=== PATIENT | female | born 1970 | race American Indian/Alaskan Native ===

== ENCOUNTER 2019-02-11 19:23 | Emergency (ER) | payer OTHER ==
[2019-02-11] MEDS ORDERED: SUBLIMAZE IV ONE (19:56)
[2019-02-11] MEDS ORDERED: ZOFRAN IV ONE (19:56)
[2019-02-11] MEDS ORDERED: TORADOL IV ONE (19:57)
--- NOTE | 2019-02-11 20:05 | Emergency Department Report ---
HPI - General Chief Complaint: Abdominal Pain Time Seen by Provider: 02/11/19 19:48 - HPI HPI: Room 6 The patient is a 48-year-old female presenting with a chief complaint of left flank pain. Patient states her symptoms began today approximately 14:00 with pain in the left flank. Patient states pain radiated around to the left lower quadrant suprapubic region. Patient describes the pain is sharp and cramping in nature. Patient states her pain has been constant. Patient denies dysuria or hematuria but states when she attempted to urinate only small amount came out. Patient and the second episode of nausea vomiting. Patient denies history of fever. Denies previous episodes of the same type of pain. Patient currently gets her pain a score of 5/10 Location: Left flank Duration: Constant since 14:00 Quality: Cramping Severity: 5/10 Modifying factors: [see above] Context: [see above] Mode of transportation: [not driving] ED Past Medical Hx - Past Medical History Additional medical history: Ulcerative colitis - Surgical History Additional Surgical History: Bilateral tubal ligation - Family History Family history: no significant - Social History Smoking Status: Never Smoker Substance Use Type: None (denies illicit drug use) - Medications Home Medications: Home Medications Medication Instructions Recorded Confirmed Last Taken Type HYDROcodone/APAP 5-325 [[place] 1 - 2 each PO Q6HR PRN #14 tablet 02/11/19 Unknown Rx 5/325] levoFLOXacin [Levaquin TAB] 500 mg PO QDAY #7 tablet 02/11/19 Unknown Rx ED Review of Systems ROS: Stated complaint: ABD PAIN Other details as noted in HPI Constitutional: denies: fever Eyes: denies: eye pain ENT: denies: throat pain Respiratory: no symptoms reported Cardiovascular: denies: chest pain Endocrine: no symptoms reported Gastrointestinal: abdominal pain, nausea, vomiting Genitourinary: denies: dysuria, hematuria Musculoskeletal: back pain Neurological: denies: headache Physical Exam - Physical Exam Vital Signs: Vital Signs 02/11/19 19:33 Temperature 98.4 F Pulse Rate 78 Respiratory 19 Rate Blood Pressure 135/86 [Left] O2 Sat by Pulse 99 Oximetry Physical Exam: GENERAL: The patient is well-developed well-nourished female lying on stretcher not to be in acute distress. [] HEENT: Normocephalic. Atraumatic. Extraocular motions are intact. Patient has moist mucous membranes. NECK: Supple. Trachea midline CHEST/LUNGS: Clear to auscultation. There is no respiratory distress noted. HEART/CARDIOVASCULAR: Regular. There is no tachycardia. There is no gallop rub or murmur. ABDOMEN: Abdomen is soft, with mild discomfort to palpation in the suprapubic region. There is no rebound or guarding. Patient has normal bowel sounds. There is no abdominal distention. SKIN: There is no rash. There is no edema. There is no diaphoresis. NEURO: The patient is awake, alert, and oriented. The patient is cooperative. The patient has normal speech MUSCULOSKELETAL: There is no CVA tenderness. There is no evidence of acute injury. ED Course Vital Signs 02/11/19 19:33 Temperature 98.4 F Pulse Rate 78 Respiratory 19 Rate Blood Pressure 135/86 [Left] O2 Sat by Pulse 99 Oximetry ED Medical Decision Making - Lab Data Result diagrams: 02/11/19 20:11 02/11/19 20:11 - Radiology Data Radiology results: report reviewed (CT abdomen and pelvis), image reviewed (CT abdomen and pelvis) [facility] [address] [place] [address] Cat Scan Report Signed Patient: MONY GONZALEZ MR#: [id number] : 1970 Acct:[id number] Age/Sex: 48 / F ADM Date: 02/11/19 Loc: ED Attending Dr: Ordering Physician: TWAN FOLEY MD Date of Service: 02/11/19 Procedure(s): CT abdomen pelvis wo con Accession Number(s): [id number] cc: TWAN FOLEY MD PROCEDURE: CT ABDOMEN PELVIS WO CON TECHNIQUE: Axial helical imaging through the abdomen and pelvis with sagittal and coronal reformatted images obtained. HISTORY: left flank/suprapubic pain, nausea vomiting COMPARISONS: None FINDINGS: The lung bases are without infiltrate, pneumothorax or pleural fluid collect ion. The liver, spleen, pancreas and adrenal glands are unremarkable. There appear to be punctate nonobstructing stones in the right renal pelvis. There is no evidence of hydronephrosis nor hydroureter. The gallbladder is mildly distended and unremarkable. There is moderate distention of the stomach which contains ingested contents. The bowel is otherwise normal caliber. There is a moderate amount of stool in the ascending and transverse colon. The appendix is normal caliber. There is no evidence of pneumoperitoneum or free fluid. The abdominal aorta is normal caliber. There is no evidence of intra-abdominal adenopathy on this study without contrast. The urinary bladder is mildly distended and unremarkable. The uterus and adnexa are unremarkable. The bony structures are notable for dextrocurvature of the lumbar spine. IMPRESSION: 1. No evidence of an acute intra-abdominal process on this study without contrast. 2. Nonobstructing stones right renal pelvis. No evidence of hydronephrosis. 3. Dextrocurvature lumbar spine. This document is electronically signed by Maria Teresa Salazar MD., Feb 11 2019 09:36:04 PM ET Transcribed By: ED Dictated By: MARIA TERESA SALAZAR MD Electronically Authenticated By: MARIA TERESA SALAZAR MD Signed Date/Time: 02/11/192137 DD/ 13 TD/TT: 02/11/192113 - Differential Diagnosis renal colic, UTI, pyelonephritis, Critical care attestation.: If time is entered above; I have spent that time in minutes in the direct care of this critically ill patient, excluding procedure time. ED Disposition Clinical Impression: Acute left flank pain, UTI (urinary tract infection) Disposition: - TO HOME OR SELFCARE Is pt being admited?: No Does the pt Need Aspirin: No Condition: Stable Instructions: Abdominal Pain (ED) Additional Instructions: Return to the emergency department immediately should you develop worsening symptoms, fever, inability to tolerate food or liquid or any other concerns. Prescriptions: levoFLOXacin [Levaquin TAB] 500 mg PO QDAY #7 tablet HYDROcodone/APAP 5-325 [[place] 5/325] 1 - 2 each PO Q6HR PRN #14 tablet PRN Reason: Pain Referrals: PRIMARY [facility] [Referring] - 3-5 Days Time of Disposition: 21:51
[2019-02-11 20:33] LABS: Basophils # (Auto) 0.1 K/mm3 (0.0-0.1); Basophils % (Auto) 0.6 % (0.0-1.8); Eosinophils # (Auto) 0.4 K/mm3 (0.0-0.4); Eosinophils % (Auto) 3.4 % (0.0-4.3); Hematocrit 36.9 % (30.3-42.9); Hemoglobin 11.3 gm/dl (10.1-14.3); Lymphocytes # (Auto) 1.7 K/mm3 (1.2-5.4); Lymphocytes % (Auto) 13.9 % (13.4-35.0); Mean Corpuscular HGB Conc 31 % (30-34); Mean Corpuscular Volume 77 fl (79-97); Platelet Count 432 K/mm3 (140-440); Red Blood Count 4.78 M/mm3 (3.65-5.03)
[2019-02-11 20:55] LABS: Bacteria,Urine 1+ /HPF (Negative); Bilirubin,Urine NEG (Negative); Blood,Urine SM (Negative); Color,Urine Yellow (Yellow); Mucus,Urine FEW /HPF; Protein,Urine <15 mg/dL mg/dL (Negative); Urobilinogen,Urine < 2.0 mg/dL (<2.0)
[2019-02-11 20:57] LABS: Alanine Aminotransferase 16 units/L (7-56); Albumin 3.8 g/dL (3.9-5); BUN/Creatinine Ratio 19; Blood Urea Nitrogen 13 mg/dL (7-17); Calcium 9.3 mg/dL (8.4-10.2); Hemolysis Index 19
--- NOTE | 2019-02-11 21:38 | Cat Scan Report ---
PROCEDURE: CT ABDOMEN PELVIS WO CON TECHNIQUE: Axial helical imaging through the abdomen and pelvis with sagittal and coronal reformatte d images obtained. HISTORY: left flank/suprapubic pain, nausea vomiting COMPARISONS: None FINDINGS: The lung bases are without infiltrate, pneumothorax or pleural fluid collection. The liver, spleen, pancreas and adrenal glands are unremarkable. There appear to be punctate nonobstructing stones in the right renal pelvis. There is no evidence of hydronephrosis nor hydroureter. The gallbladder is mildly distended and unremarkable. There is moderate distention of the stomach which contains ingested contents. The bowel is otherwise normal caliber. There is a moderate amount of stool in the ascending and transverse colon. The appendix is normal caliber. There is no evidence of pneumoperitoneum or free fluid. The abdominal aorta is normal caliber. There is no evidence of intra-abdominal adenopathy on this study without contrast. The urinary bladder is mildly distended and unremarkable. The uterus and adnexa are unremarkable. The bony structures are notable for dextrocurvature of the lumbar spine. IMPRESSION: 1. No evidence of an acute intra-abdominal process on this study without contrast. 2. Nonobstructing stones right renal pelvis. No evidence of hydronephrosis. 3. Dextrocurvature lumbar spine. This document is electronically signed by Sofi Yung MD., Feb 11 2019 09:36:04 PM ET
[2019-02-11 21:53] VITALS: BP 137/66
== END 2019-02-11 22:25 | disposition home or self-care (01) ==
LOC: ED 19:23
DX: N39.0 Urinary tract infection, site not specified (principal); Z98.51 Tubal ligation status; Z88.2 Allergy status to sulfonamides; Z91.048 Other nonmedicinal substance allergy status
CPT/HCPCS: 36415; 74176; 80053; 81001; 84703; 85025; 96374; 96375; 99284; J1885; J2405; J3010